=== PATIENT | female | born 1995 ===

== ENCOUNTER → 2020-11-18 | Outpatient (CLI) | payer OTHER | END | disposition home or self-care (01) | LOC: PPH VACUNA | DX: Z23 Encounter for immunization (principal) ==

== ENCOUNTER 2020-12-09 08:00 | Outpatient (CLI) | payer OTHER | END 2020-12-09 08:30 | disposition home or self-care (01) | LOC: PPH VACUNA 08:00 | DX: Z23 Encounter for immunization (principal) ==